=== PATIENT | male | born 1950 | race Caucasian/White ===

== ENCOUNTER 2018-03-17 13:59 | Emergency (ER) | payer OTHER, BC ==
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
[2018-03-17] MEDS ORDERED: Sodium Chloride 0.9% 1,000 ML IV SCH (14:15)
[2018-03-17] MEDS ORDERED: Iopamidol 612 MG/ML 150 ML Bottle IVPUSH ONE (14:15)
[2018-03-17] MEDS: Sodium Chloride 0.9% 10 ML Syringe FLUSH PRN ×2 (14:18→14:31)
--- NOTE | 2018-03-17 14:57 | CT ---
CT cervical spine Technique: Multiple axial sections were obtained from above C1 inferiorly to the mid T3 level. Reconstructed sagittal and coronal images were obtained. Comparison: No prior cervical spine imaging. Findings: Vertebral body heights and disc spaces are maintained. Minimal calcifications are seen off the anterior and inferior endplates of C3-C6 most likely representing minimal calcification within the anterior annulus. Minimal calcification seen diffusely within the anterior annulus at C7-T1. Posterior skull base is intact. Incomplete arch of C1 is seen posteriorly which is felt to be a normal variant. Scattered degenerative apophyseal change is seen. No bony central canal stenosis or bony neural foraminal stenosis is seen. No fracture is appreciated. No abnormal subluxation is seen on the reconstructed sagittal images. Impression: 1. Mild degenerative change as noted above. 2. Nothing acute is appreciated on CT study of the cervical spine. Diagnostic code #2
--- NOTE | 2018-03-17 15:09 | CT ---
CT lumbar spine Technique: Multiple axial sections through the lumbar spine were obtained. Reconstructed coronal and sagittal images were reviewed. Findings: Vertebral body heights are maintained. Minimal disc space narrowing is noted at L3-4. No fracture is identified. No abnormal subluxation is seen. Slight circumferential disc bulge is noted at L3-4 with posterior disc maintaining a planar margin. Mild circumferential disc bulge is noted at L4-5 with posterior disc maintaining a planar margin. No traumatic disc herniation is seen. Impression: 1. Minimal degenerative change. Nothing acute is appreciated on CT study of the lumbar spine. Diagnostic code #2
--- NOTE | 2018-03-17 15:09 | CT ---
CT thoracic spine Technique: Multiple axial images were obtained through the thoracic spine. Reconstructed coronal and sagittal images were reviewed. Findings: Vertebral bodies and disc spaces are maintained. Slight Schmorl node deformities are seen within the lower thoracic spine. No fracture is appreciated. No abnormal subluxation is seen. No bony central canal stenosis or bony neural foraminal stenosis is seen. Impression: 1. Incidental Schmorl node deformities. 2. Nothing acute is appreciated on CT of the thoracic spine. Diagnostic code #2
--- NOTE | 2018-03-17 15:09 | CT ---
CT chest Technique: Multiple axial sections through the chest were obtained. Intravenous contrast was utilized. Comparison: No prior abdominal imaging is available. Findings: Small cystic area is seen adjacent to the ascending aorta on the right side mediastinum measuring approximately 2.8 x 1.2 cm. This has Hounsfield unit measurements of simple fluid and is felt to represent an incidental cyst. Opacified great vessels appear within normal limits although ascending aorta shows some pulsation artifact. No pericardial effusion is seen. No axillary adenopathy is noted. Minimal atelectasis is noted within the left base. Lungs otherwise are clear. No discrete rib fracture is seen. Impression: 1. Small cystic area within the right side of the mediastinum which is believed to be incidental. 2. Mild left basilar atelectasis. 3. Nothing acute is seen on CT study of the chest. Diagnostic code #2 CT abdomen and pelvis Technique: Multiple axial sections were obtained from above the dome of the diaphragm inferiorly through the pubic symphysis. Intravenous contrast was utilized. No oral contrast has been given. Findings: Cyst is identified within the right lobe of the liver measuring approximately 1.7 cm. Liver is otherwise unremarkable. Spleen appears within normal limits. Adrenal glands show no nodule. Cysts are noted within both kidneys. Largest cyst measures approximately 2.9 cm. Kidneys otherwise appear unremarkable. Pancreas appears within normal limits. Aorta shows no aneurysm. No retroperitoneal adenopathy is seen. Appendix is seen which appears normal in size. No pelvic mass or adenopathy is seen. No free fluid is seen. No inflammatory change is seen. Bone window settings were reviewed which shows no acute osseous abnormality. Impression: 1. Liver cyst and renal cysts. 2. Nothing acute is appreciated on CT study of the abdomen and pelvis. Diagnostic code #2
== END 2018-03-17 15:56 | disposition home or self-care (01) ==
LOC: JD.ED 13:59
DX: S13.9XXA Sprain of joints and ligaments of unspecified parts of neck, initial encounter (principal); S29.019A Strain of muscle and tendon of unspecified wall of thorax, initial encounter; S30.1XXA Contusion of abdominal wall, initial encounter; I10 Essential (primary) hypertension; V69.40XA Driver of heavy transport vehicle injured in collision with unspecified motor vehicles in traffic accident, initial encounter
CPT/HCPCS: 36415; 71260; 72125; 72128; 72131; 74177; 80053; 81001; 82150; 85007; 85027; 96360; 99285; G0480; J7040; Q9967

== ENCOUNTER 2022-01-17 12:04 | Emergency (ER) | payer MEDICARE, BC ==
[2022-01-17] MEDS ORDERED: Dextrose 5%-0.9% NaCl 1,000 ML IV SCH (12:30)
[2022-01-17] MEDS ORDERED: Acetaminophen/oxyCODONE 325-5 MG Tab PO ONE (13:41)
[2022-01-17] MEDS ORDERED: Ondansetron 4 MG Tab.DIS PO ONE (13:42)
== END 2022-01-17 14:28 | disposition home or self-care (01) ==
LOC: JD.ED 12:04
DX: S06.0XAA Concussion with loss of consciousness status unknown, initial encounter (principal); S30.811A Abrasion of abdominal wall, initial encounter; I10 Essential (primary) hypertension; M19.90 Unspecified osteoarthritis, unspecified site; V80.010A Animal-rider injured by fall from or being thrown from horse in noncollision accident, initial encounter
CPT/HCPCS: 36415; 70450; 71045; 72125; 72170; 83690; 83735; 83880; 85025; 85610; 85730; 86140; 96360; 99284; A9270; J7042